=== PATIENT | female | born 1960 | race Caucasian/White ===

== ENCOUNTER 2016-12-13 12:17 | Emergency (ER) | payer MEDICAID, OTHER ==
[~2016-12-13] VITALS: Ht 149.9 cm; Wt 55.5 kg
[~2016-12-13 12:17] MED LIST: ALBU18HF INHALATION; ASPI-664 PO; BENA20TA48 PO; CARV25TA97 PO; GLIP-95 PO; LANT3I SC; LEVO750T25 PO; PROM6.25 PO
[2016-12-13 12:42] VITALS: Ht 149.9 cm; Wt 55.5 kg
[2016-12-13] MEDS ORDERED: ALBUTEROL 0.5% (NEB) 2.5 MG/0.5 ML AMP INH STA (13:46)
[2016-12-13] MEDS ORDERED: IPRATROPIUM (NEB) 0.5 MG/2.5 ML AMP INH STA (13:46)
--- NOTE | 2016-12-13 14:26 | RADRPT ---
PROCEDURE: Chest Radiograph. CLINICAL INDICATION: Asthma exacerbation TECHNIQUE: Single frontal chest radiograph. COMPARISON: Chest radiograph 12/17/2015 FINDINGS: The cardiomediastinal silhouette is within normal limits. Study is mildly limited due to underpenet ration. The left lung base is suboptimally visualized. The cardiomediastinal silhouette is grossly within normal limits. No infiltrate or effusion is seen. The bones are intact. IMPRESSION: 1. Limited study without evidence of acute cardiopulmonary disease. RPTAT: KK .Jose Sanches MD, MD Date Time Electronically viewed and signed by .Jose Sanches MD, MD on 12/13/2016 14:25 .B/
[2016-12-13 14:51] LABS: ADD SCAN DIFF NO
[2016-12-13 14:53] LABS: BASOPHILS % 0.2 % (0.0-2.0); EOSINOPHILS # 0.1 10^3/ul (0.0-0.5); EOSINOPHILS % 1.4 % (0.0-7.0); HEMATOCRIT 36.3 % (37.0-47.0); HEMOGLOBIN 11.8 g/dl (12.0-16.0); LYMPHOCYTES % 9.2 % (15.0-51.0); MEAN CORPUSCULAR HEMOGLOBIN 29.8 pg (29.0-33.0); MEAN CORPUSCULAR HGB CONC 32.5 g/dl (32.0-37.0); MEAN CORPUSCULAR VOLUME 91.7 fl (82.0-101.0); MEAN PLATELET VOLUME 9.8 fl (7.4-10.4); MONOCYTE # 0.5 10^3/ul (0.3-0.9); MONOCYTES % 4.6 % (0.0-11.0); NEUTROPHIL # 8.7 10^3/ul (1.6-7.5); NEUTROPHILS % 84.2 % (39.0-77.0); PLATELET COUNT 342 10^3/UL (140-415); RED BLOOD COUNT 3.96 10^6/ul (4.20-5.40); RED CELL DISTRIBUTION WIDTH 12.1 % (11.5-14.5); WHITE BLOOD COUNT 10.3 10^3/ul (4.8-10.8)
[2016-12-13 15:04] LABS: INR 1.04; PROTIME 13.6 Sec (12.2-14.2); PT RATIO 1.1
[2016-12-13 15:05] LABS: PARTIAL THROMBOPLASTIN TIME 37.5 Sec (25.0-35.0)
[2016-12-13 15:09] LABS: ALBUMIN 4.7 g/dl (3.3-4.9)
[2016-12-13 15:10] LABS: POTASSIUM 4.6 mmol/L (3.5-5.1)
[2016-12-13 15:12] LABS: ALBUMIN/GLOBULIN RATIO 1.06; CREATININE 5.57 mg/dl (0.44-1.00); TOTAL PROTEIN 9.1 g/dl (6.1-8.1)
[2016-12-13 15:13] LABS: CALCIUM 9.6 mg/dl (8.4-10.2)
[2016-12-13] MEDS ORDERED: ALBUTEROL 0.5% (NEB) 2.5 MG/0.5 ML AMP NEB STA (15:52)
[2016-12-13] MEDS ORDERED: IPRATROPIUM (NEB) 0.5 MG/2.5 ML AMP NEB STA (15:52)
--- NOTE | 2016-12-13 16:18 | ERD ---
ER Documentation Chief Complaint Date/Time DATE: 12/13/16 TIME: 16:11 Chief Complaint BROUGHT IN BY SON DUE TO COUGH 1 WEEK AND SOB HPI This is a 56-year-old Finnish-speaking female with a known history of end-stage renal disease on hemodialysis every Saturday and Saturday. The patient indicates she had a full run of dialysis yesterday. She is an insulin- dependent diabetic with a known history of hypertension. She presents to the emergency department today stating that for the past 7 days she has had a productive cough with whitish sputum. She has had no fevers or shaking or chills. Contrary to the triage note she has no shortness of breath at rest or exertion. She denies any swelling of her lower extreme is. She has no chest pain or pressure that radiates to the neck arm back or jaw. ROS All systems reviewed and are negative except as per history of present illness. Medications Home Meds Active Scripts Promethazine w/Codeine* (Phenergan w/Codeine* Syrup) 5 Ml Syrup, 10 ML PO Q4H Y for COUGH, #120 ML Prov:JDOI ESTEVEZ DO 12/17/15 Albuterol Sulfate* (Ventolin HFA*) 18 Gm Hfa.aer.ad, 2 PUFF INHALATION Q4H, #1 INHALER Prov:JODI ESTEVEZ DO 12/17/15 Levofloxacin* (Levaquin*) 750 Mg Tablet, 750 MG PO DAILY for 7 Days, TAB Prov:JODI ESTEVEZ DO 12/17/15 Carvedilol* (Coreg*) 25 Mg Tab, 25 MG PO BID, #60 Prov:ALLYN LICEA NP 02/25/15 Reported Medications Insulin Glargine* (Lantus*) 100 Unit/Ml Soln, 6 UNIT SC QHS, #1 VIAL 12/17/15 Glipizide* (Glipizide*) 10 Mg Tablet, 10 MG PO BID, TAB 12/17/15 Benazepril Hcl* (Benazepril Hcl*) 20 Mg Tablet, 20 MG PO DAILY, #30 TAB 12/17/15 Aspirin (Aspirin Low Dose) 81 Mg Tablet.dr, 81 MG PO DAILY 11/05/14 Allergies Allergies: Coded Allergies: No Known Allergies (Verified Allergy, Unknown, 12/13/16) PMhx/Soc History of Surgery: No Anesthesia Reaction: No Hx Neurological Disorder: Yes (Tingling in arms and legs at time) Hx Respiratory Disorders: No Hx Cardiac Disorders: Yes (HTN) Hx Psychiatric Problems: No Hx Miscellaneous Medical Probl: Yes (DM, DIALYSIS) Hx Alcohol Use: No Hx Substance Use: No Hx Tobacco Use: No Smoking Status: Never smoker Physical Exam Vitals Vital Signs Date Time Temp Pulse Resp B/P Pulse Ox O2 Delivery O2 Flow Rate FiO2 12/13/16 16:00 106 17 100 21 12/13/16 14:22 Vapotherm 10 12/13/16 14:01 83 17 97 21 12/13/16 12:42 99.4 84 18 170/76 99 Physical Exam Constitutional:Well-developed. Well-nourished. HEENT:Normocephalic. Atraumatic.Pupils were equal round reactive to light. Moist mucous membranes.No tonsillar exudates. Neck: No nuchal rigidity. No lymphadenopathy. No posterior cervical spine tenderness or step-offs. Respiratory: Not using accessory muscles of respiration.Lungs were clear to auscultation bilaterally. No rhonchi. No rales. Mild wheezing on end auscultation. Cardiovascular: Regular rate regular rhythm.No murmurs. No rubs were appreciated.S1, S2 normal. Distal pulses are palpable 2+ bilaterally. GI: Abdomen was soft. Nontender. Non Distended. No pulsatile abdominal masses or bruits. No rebound. No guarding. Bowel sounds were present and normal. Muscle skeletal: Full range of motion of both the upper and lower extremities bilaterally.Normal muscle tone.No assymetrical calf tenderness or swelling. Skin: No petechia, no purpura. No lesions on the palms or the soles of the feet. No maculopapular rash. Positive thrill and bruit of the left AV fistula NEURO: Patient was alert, awake, orientated x3.No facial droop. Gait observed and normal with no ataxia.Speech had regular rate and rhythm. No focal neurological deficits. Result Diagram: 12/13/16 1410 12/13/16 1410 Results 24 hrs Laboratory Tests Test 12/13/16 14:10 Activated Partial Thromboplast Time 37.5Sec Alanine Aminotransferase (ALT/SGPT) 24IU/L Albumin 4.7g/dl Albumin/Globulin Ratio 1.06 Alkaline Phosphatase 217IU/L Anion Gap 25 Aspartate Amino Transf (AST/SGOT) 27IU/L B-Type Natriuretic Peptide 301959RT/ML Basophils # 0.010^3/ul Basophils % 0.2% Blood Urea Nitrogen 16mg/dl Calcium Level 9.6mg/dl Carbon Dioxide Level 27mmol/L Chloride Level 93mmol/L Creatinine 5.57mg/dl Direct Bilirubin 0.00mg/dl Eosinophils # 0.110^3/ul Eosinophils % 1.4% Globulin 4.40g/dl Glucose Level 225mg/dl Hematocrit 36.3% Hemoglobin 11.8g/dl INR International Normalized Ratio 1.04 Indirect Bilirubin 0.0mg/dl Lymphocytes # 1.010^3/ul Lymphocytes % 9.2% Mean Corpuscular Hemoglobin 29.8pg Mean Corpuscular Hemoglobin Concent 32.5g/dl Mean Corpuscular Volume 91.7fl Mean Platelet Volume 9.8fl Monocytes # 0.510^3/ul Monocytes % 4.6% Neutrophils # 8.710^3/ul Neutrophils % 84.2% Nucleated Red Blood Cells # 0.010^3/ul Nucleated Red Blood Cells % 0.0/100WBC Platelet Count 77170^3/UL Potassium Level 4.6mmol/L Prothrombin Time 13.6Sec Prothrombin Time Ratio 1.1 Red Blood Count 3.9610^6/ul Red Cell Distribution Width 12.1% Sodium Level 140mmol/L Total Bilirubin 0.0mg/dl Total Protein 9.1g/dl White Blood Count 10.310^3/ul Current Medications Medications (Trade) Dose Ordered Sig/Silva Route PRN Reason Start Time Stop Time Status Last Admin Dose Admin Albuterol (Proventil 0.5% (Neb)) 10 mg ONCE STAT INH 12/13/16 13:46 12/13/16 13:48 DC 12/13/16 14:01 Ipratropium [place] (Atrovent 0.02% (Neb)) 1 mg ONCE STAT INH 12/13/16 13:46 12/13/16 13:48 DC 12/13/16 14:01 Albuterol (Proventil 0.5% (Neb)) 5 mg ONCE STAT NEB 12/13/16 15:52 12/13/16 15:53 DC 12/13/16 15:59 Ipratropium [place] (Atrovent 0.02% (Neb)) 0.5 mg ONCE STAT NEB 12/13/16 15:52 12/13/16 15:53 DC 12/13/16 15:59 Procedures/MDM The patient presented to the emergency department with dyspnea. My differential diagnosis included but was not limited to upper airway obstruction, CHF, pulmonary embolism, cardiac ischemia, pneumonia, pneumothorax, anemia, drug overdose, pulmonary edema, COPD or asthma. 1 view chest radiograph for and reviewed by myself showed no cardiomegaly no infiltrates or pneumothorax. There is no evidence of pulmonary vascular congestion. The patient has end-stage renal disease but did not require emergent hemodialysis that she is scheduled for her dialysis tomorrow. The patient's BNP was significantly elevated but this appeared to be more result of her renal failure versus congestive heart failure. Blood glucose was elevated at 225 with no evidence of ketosis. 12 Lead EKG tracing ordered and reviewed by myself showed: Sinus tachycardia 105 bpm and no arrhythmia. AK interval normal. QRS duration normal. No ST segment elevation No ST segment depression. T-wave inversion in the lateral leads V6 and V5 The patient received nebulizer treatments of albuterol Atrovent and had complete resolution of her wheezing. Observation Note: Time: 4 hours Family Hx: No Hypertension Evaluation: Multiple exams showed improving symptoms and no evidence of respiratory failure. The patient states she felt comfortable being discharged home as she did have a similar episode roughly one year ago. She was requesting antibiotics and therefore was treated with azithromycin for suspected bronchitis. The patient was discharged home in fair condition. They were instructed to return to the emergency department at any time if there was any worsening of their condition. The patient stated they would follow up with their PCP in the next 24-48 hours to initiate a suitable medication regimen under the care of their PCP as well as to allow their PCP to monitor any drug reactions. The patient was discharged home with prescriptions after they gave informed consent to the new medication. They were also fully informed by myself on the adverse effects and adverse drug interactions in order to provide adequate safeguards to prevent possible adverse reactions to medications. Departure Diagnosis: Primary Impression: Acute bronchitis Bronchitis organism: unspecified organism Qualified Code: J20.9 - Acute bronchitis, unspecified organism Additional Impression: Hyperglycemia without ketosis Condition: MAXIM Landry Dec 13, 2016 16:18
[2016-12-13] MEDS ORDERED: ALBU8.5H3 INH (16:22)
[2016-12-13] MEDS ORDERED: AZIT250T94 PO (16:22)
[2016-12-13] MEDS ORDERED: LABETALOL HCL 20MG INJ IV ONE (17:00)
[2016-12-13 18:21] VITALS: BP 146/63; PULSE 86; RESP 16; TEMP 98.1
== END 2016-12-13 18:24 | disposition home or self-care (01) ==
LOC: E/R 12:17
DX: J20.9 Acute bronchitis, unspecified (principal); E11.65 Type 2 diabetes mellitus with hyperglycemia; I12.0 Hypertensive chronic kidney disease with stage 5 chronic kidney disease or end stage renal disease; N18.6 End stage renal disease; Z79.84 Long term (current) use of oral hypoglycemic drugs; Z99.2 Dependence on renal dialysis; Z79.82 Long term (current) use of aspirin; Z79.4 Long term (current) use of insulin
CPT/HCPCS: 71010; 80053; 83880; 85025; 85610; 85730; 87040; 93005; 94644; 94664; 96374; Z7502; Z7610

== ENCOUNTER 2017-10-27 10:18 | Inpatient (IN) | END 2017-10-29 18:06 | disposition home or self-care (01) | DRG 291 ==

== ENCOUNTER 2017-10-31 20:33 | Emergency (ER) | END 2017-11-01 02:16 | disposition home or self-care (01) ==

== ENCOUNTER 2018-03-31 12:22 | Emergency (ER) | END 2018-03-31 13:56 | disposition home or self-care (01) ==

== ENCOUNTER 2018-10-09 12:10 | Emergency (ER) | END 2018-10-09 18:00 | disposition home or self-care (01) ==